=== PATIENT | male | born 1980 | race Asian ===

== ENCOUNTER 2020-09-23 08:09 | Emergency (ER) | payer BC, SELFPAY ==
[~2020-09-23] VITALS: Ht 167.6 cm; Wt 72.6 kg
[2020-09-23 08:21] VITALS: BP_SYST 134
--- NOTE | 2020-09-23 08:23 | NUR ---
Patient to ER bed 08 to gown for evaluation. Side rails up.
--- NOTE | 2020-09-23 08:27 | NUR ---
MD ABRAMS AT BEDSIDE ASSESSING PT.
--- NOTE | 2020-09-23 08:28 | NUR ---
C/O EPIGASTRIC PAIN , RADIATES TO THE LEFT FLANK AREA. BEGAN LAST NIGHT HE STATED. PAIN IS CONSTANT HE STATED.
[2020-09-23 10:27] LABS: BASOPHILS # (AUTO) 0.1 K/uL (0.0-0.2); BASOPHILS % (AUTO) 0.6 % (0.0-2.0); EOSINOPHILS # (AUTO) 0.1 K/uL (0.0-0.4); EOSINOPHILS % (AUTO) 0.8 % (0.0-4.0); HEMOGLOBIN 15.8 g/dL (14.0-18.0); LYMPHOCYTES # (AUTO) 1.1 K/uL (1.0-5.5); LYMPHOCYTES % (AUTO) 12.2 % (20.5-51.5); MEAN CORPUSCULAR HEMOGLOBIN 30 pg (27-31); MEAN CORPUSCULAR HGB CONC 35 % (32-36); MEAN CORPUSCULAR VOLUME 85 fL (79.0-98.0); MONOCYTES # (AUTO) 0.8 K/uL (0.0-1.0); MONOCYTES % (AUTO) 8.7 % (1.7-9.3); NEUTROPHILS # (AUTO) 7.3 K/uL (1.8-7.7); NEUTROPHILS % (AUTO) 77.7 % (40.0-70.0); PLATELET COUNT (AUTO) 227 K/uL (130-430); RED BLOOD CELL COUNT(AUTO) 5.32 MIL/uL (4.2-6.2); RED CELL DISTRIBUTION WIDTH 12.8 % (9.0-15.0); WHITE BLOOD COUNT (AUTO) 9.4 K/uL (4.8-10.8)
[2020-09-23 10:39] LABS: CALCIUM 9.1 mg/dL (8.4-11.0); CREATININE 1.25 mg/dL (0.55-1.30); POTASSIUM 4.3 mmol/L (3.5-5.1)
[2020-09-23 10:45] LABS: ALBUMIN 3.8 g/dL (3.4-4.8); TOTAL BILIRUBIN 0.6 mg/dL (0.0-1.0)
--- NOTE | 2020-09-23 11:14 | NUR ---
PT HAS REMAINED STABLE, AND NO DISTRESS WHILE WAITING FOR HIS US RESULTS TO COME IN. PT IS UP AND USING THE RESTROOM. VS HAVE REMAINED WNL.
[2020-09-23] MEDS ORDERED: HYDR-3917 PO (11:25)
[2020-09-23] MEDS ORDERED: IBUP-1971 PO (11:25)
[2020-09-23] MEDS ORDERED: OMEP20CA15 PO (11:29)
--- NOTE | 2020-09-23 11:30 | NUR ---
Patient given written and verbal discharge instructions and verbalizes understanding. ER MD discussed with patient the results and treatment provided. Patient in stable condition. ID arm band removed. Rx of NORCO, MOTRIN given. Patient educated on pain management and to follow up with PMD. Pain Scale 0/10. Opportunity for questions provided and answered. Medication side effect fact sheet provided.
[2020-09-23 11:31] VITALS: BP_SYST 96
== END 2020-09-23 11:30 | disposition home or self-care (01) ==
LOC: SED 08:09
DX: K80.50 Calculus of bile duct without cholangitis or cholecystitis without obstruction (principal); Z79.899 Other long term (current) drug therapy
CPT/HCPCS: 71045; 76700-TC; 80053; 82150; 83690; 84484; 85025; 93005; 99285